=== PATIENT | male | born 1955 | race African-American/Black ===

== ENCOUNTER 2017-02-06 07:55 | Emergency (ER) | payer OTHER ==
[~2017-02-06] VITALS: Ht 180.3 cm; Wt 70.0 kg
[2017-02-06 07:56] VITALS: BP 163/81; PULSE 67; RESP 14; TEMP 98.8; O2SAT 97
[2017-02-06] MEDS ORDERED: PENI500T PO (09:33)
[2017-02-06] MEDS ORDERED: MAGICADU2 SWISH-SPIT (09:33)
--- NOTE | 2017-02-06 09:33 | PD ---
HPI Chief Complaint: Oral / Dental Pain or Problem Time Seen by Provider: 09:27 Travel History International Travel<30 days: No Contact w/Intl Traveler<30days: No Traveled to known affect area: No History of Present Illness HPI patient 61-year-old male who admits to cocaine use, smoker presents emergency department for evaluation of a right mandibular jaw swelling and pain to the past few days which is gradually worsening. Denies having followed up with a dentist as he does not have one. Denies any fever denies difficulty swallowing denies any chest pain. Symptoms are moderate, gradually worsening, right jaw, associated signs symptoms as above. PFSH Past Medical History Medical History: Denies Significant Hx Diminished Hearing: No ?: Not Past Surgical History Other Surgery: Yes (HEMMROID SX) Social History Alcohol Use: Yes (DAILY) Tobacco Use: Yes (1 PPD) Substance Use: Yes (MARIJUANA, COCAINE-02/05/17) Allergies-Medications (Allergen,Severity, Reaction): Coded Allergies: No Known Allergies (Unverified , 02/06/17) Reported Meds & Prescriptions Reported Meds & Active Scripts Active Penicillin V Potassium 500 Mg Tab 500 Mg PO Q6H 10 Days Magic Mouthwash Adult Liq (Multi-Ingredient Mouthwash/Gargle) 120 Ml Susp 5 Ml SWISH-SPIT ACHS Each 5mL contains: Nystatin 200,000units, Diphenhydramine 4.25mg, Viscous Lidocaine 10mg, Estrada syrup 0.8 mL Review of Systems Except as stated in HPI: all other systems reviewed are Neg Physical Exam Narrative GENERAL: Well-nourished, well-developed patient. SKIN: Focused skin assessment warm/dry. HEAD: Normocephalic. EYES: No scleral icterus. No injection or drainage. ENT: TMs clear bilaterally, no lymphadenopathy in the neck or face, neck is supple. There is a dental abscess of his coming to a head at what appears to be the right bicuspid on the mandibular side. The patient is nearly edentulous. After drainage this swelling is gone down significantly. NECK: Supple, trachea midline. No JVD or lymphadenopathy. CARDIOVASCULAR: Regular rate and rhythm without murmurs, gallops, or rubs. RESPIRATORY: Breath sounds equal bilaterally. No accessory muscle use. GASTROINTESTINAL: Abdomen soft, non-tender, nondistended. MUSCULOSKELETAL: No cyanosis, or edema. BACK: Nontender without obvious deformity. No CVA tenderness. Data Data Last Documented VS Vital Signs Date Time Temp Pulse Resp B/P (MAP) Pulse Ox O2 Delivery O2 Flow Rate FiO2 02/06/17 10:08 02/06/17 07:56 98.8 67 14 97 Orders Orders Ed Discharge Order (02/06/17 12:20) MDM Medical Decision Making Medical Screen Exam Complete: Yes Emergency Medical Condition: Yes Differential Diagnosis dental abscess, Paulino angina is been excluded clinically, poor dental hygiene, smoking status. Narrative Course Patient roomed emerged department, had an uncomplicated needle drainage of his abscess, discussed smoking cessation need for antibiotic therapy and follow-up with a dentist. He stable for discharge. Procedures Procedure Narrative INCISION AND DRAINAGE: After informed consent with risks benefits competitions and alternatives discussed with the patient and agreed for needle drainage, was offered a dental block and declined. An 18-gauge needle attached with 3 cc syringe was inserted into the abscess intraorally, he drained approximately 3 cc of purulent material. Patient felt much better after the drainage. Tolerated it well. No immediate complications are seen Diagnosis Primary Impression: Dental abscess Med/Other Pt SpecificInfo: Prescription(s) given Scripts Penicillin V Potassium (Penicillin V Potassium) 500 Mg Tab 500 MG PO Q6H for Infection for 10 Days, #40 TAB 0 Refills Prov: Chase Gresham MD 02/06/17 Sghcaihp-Oqvuhxhfnynjpva-Fhibwpdgb Liq (Magic Mouthwash Adult Liq) 120 Ml Susp 5 ML SWISH-SPIT ACHS for Mouth sores, #120 ML 0 Refills Each 5mL contains: Nystatin 200,000units, Diphenhydramine 4.25mg, Viscous Lidocaine 10mg, Estrada syrup 0.8 mL Prov: Chase Gresham MD 02/06/17 Disposition: 01 DISCHARGE HOME Condition: Stable Chase Gresham MD Feb 06, 2017 09:33
== END 2017-02-06 10:10 | disposition home or self-care (01) ==
LOC: NEPD 07:55
DX: K04.7 Periapical abscess without sinus (principal); F17.210 Nicotine dependence, cigarettes, uncomplicated
CPT/HCPCS: 10060; 41800

== ENCOUNTER 2017-09-16 15:33 | Emergency (ER) | payer SELFPAY ==
[~2017-09-16] VITALS: Ht 180.3 cm; Wt 65.0 kg
[~2017-09-16 15:33] MED LIST: MAGICADU2 SWISH-SPIT; PENI500T PO
[2017-09-16] MEDS ORDERED: IOHEXOL 350 MG/ML 10 ML VIAL (for RAD DIAG) IVCONTRAST ONE (15:34)
[2017-09-16 16:23] VITALS: BP 183/92; PULSE 63; RESP 20; TEMP 97.6; O2SAT 97
[2017-09-16] MEDS ORDERED: SODIUM CHLOR 0.9% 1000 ML INJ 1,000 ML IV SCH (17:04)
--- NOTE | 2017-09-16 17:10 | PD ---
HPI Chief Complaint: Abdominal Pain Time Seen by Provider: 16:55 Travel History International Travel<30 days: No Contact w/Intl Traveler<30days: No Traveled to known affect area: No History of Present Illness HPI 62-year-old male presents to the emergency department for evaluation of abdominal pain that started today. Patient also states he feels constipated. He states that his last bowel movement was yesterday. Patient currently rates his abdominal pain 5-6/10, intermittent achy right side without radiation. Patient reports no fevers or chills. No chest pain or shortness of breath. He denies any previous abdominal surgeries. He states he has no chronic medical problems and takes no prescribed medications. He states he drinks 4 beers every other day and uses crack cocaine. He denies any IV drug use. Moderate severity. PFSH Past Medical History Diminished Hearing: No Past Surgical History Other Surgery: Yes (HEMMROID SX) Social History Alcohol Use: Yes (DAILY) Tobacco Use: Yes (1 PPD) Substance Use: Yes (MARIJUANA, COCAINE-02/05/17) Allergies-Medications (Allergen,Severity, Reaction): Coded Allergies: No Known Allergies (Unverified Allergy, Unknown, 09/16/17) Reported Meds & Prescriptions Reported Meds & Active Scripts Active No Active Prescriptions or Reported Medications Review of Systems Except as stated in HPI: all other systems reviewed are Neg Physical Exam Narrative GENERAL: Well-nourished, well-developed male patient, afebrile. SKIN: Focused skin assessment warm/dry. HEAD: Normocephalic. Atraumatic. EYES: No scleral icterus. No injection or drainage. NECK: Supple, trachea midline. No JVD or lymphadenopathy. CARDIOVASCULAR: Regular rate and rhythm without murmurs, gallops, or rubs. RESPIRATORY: Breath sounds equal bilaterally. No accessory muscle use. Lung sounds are clear to auscultation. GASTROINTESTINAL: Abdomen soft and nondistended. Patient has some tenderness to the right mid abdomen. No tenderness over McBurney's point. MUSCULOSKELETAL: No cyanosis, or edema. BACK: Nontender without obvious deformity. No CVA tenderness. Data Data Last Documented VS Vital Signs Date Time Temp Pulse Resp B/P (MAP) Pulse Ox O2 Delivery O2 Flow Rate FiO2 09/16/17 17:30 67 18 144/86 (105) 97 Room Air 09/16/17 16:23 97.6 Orders Orders Complete Blood Count With Diff (09/16/17 17:04) Comprehensive Metabolic Panel (09/16/17 17:04) Lipase (09/16/17 17:04) Prothrombin Time / Inr (Pt) (09/16/17 17:04) Act Partial Throm Time (Ptt) (09/16/17 17:04) Urinalysis - C+S If Indicated (09/16/17 17:04) Ct Abd/Pel W Iv Contrast(Rout) (09/16/17 17:04) Iv Access Insert/Monitor (09/16/17 17:04) Ecg Monitoring (09/16/17 17:04) Oximetry (09/16/17 17:04) Sodium Chlor 0.9% 1000 Ml Inj (Ns 1000 M (09/16/17 17:04) Sodium Chloride 0.9% Flush (Ns Flush) (09/16/17 17:15) Iohexol 350 Inj (Omnipaque 350 Inj) (09/16/17 15:34) Labs Laboratory Tests Test 09/16/17 17:35 09/16/17 19:05 White Blood Count 11.7 TH/MM3 Red Blood Count 4.78 MIL/MM3 Hemoglobin 14.2 GM/DL Hematocrit 43.6 % Mean Corpuscular Volume 91.1 FL Mean Corpuscular Hemoglobin 29.8 PG Mean Corpuscular Hemoglobin Concent 32.7 % Red Cell Distribution Width 14.2 % Platelet Count 179 TH/MM3 Mean Platelet Volume 8.9 FL Neutrophils (%) (Auto) 72.1 % Lymphocytes (%) (Auto) 19.9 % Monocytes (%) (Auto) 6.6 % Eosinophils (%) (Auto) 1.2 % Basophils (%) (Auto) 0.2 % Neutrophils # (Auto) 8.4 TH/MM3 Lymphocytes # (Auto) 2.3 TH/MM3 Monocytes # (Auto) 0.8 TH/MM3 Eosinophils # (Auto) 0.1 TH/MM3 Basophils # (Auto) 0.0 TH/MM3 CBC Comment DIFF FINAL Differential Comment Prothrombin Time 10.3 SEC Prothromb Time International Ratio 1.0 RATIO Activated Partial Thromboplast Time 27.5 SEC Blood Urea Nitrogen 16 MG/DL Creatinine 1.09 MG/DL Random Glucose 102 MG/DL Total Protein 7.4 GM/DL Albumin 3.7 GM/DL Calcium Level 9.2 MG/DL Alkaline Phosphatase 89 U/L Aspartate Amino Transf (AST/SGOT) 32 U/L Alanine Aminotransferase (ALT/SGPT) 38 U/L Total Bilirubin 0.4 MG/DL Sodium Level 143 MEQ/L Potassium Level 3.8 MEQ/L Chloride Level 108 MEQ/L Carbon Dioxide Level 28.3 MEQ/L Anion Gap 7 MEQ/L Estimat Glomerular Filtration Rate 83 ML/MIN Lipase 116 U/L Urine Color YELLOW Urine Turbidity CLEAR Urine pH 6.5 Urine Specific [place] 1.021 Urine Protein TRACE mg/dL Urine Glucose (UA) NEG mg/dL Urine Ketones NEG mg/dL Urine Occult Blood TRACE Urine Nitrite NEG Urine Bilirubin NEG Urine Urobilinogen 1.0 MG/DL Urine Leukocyte Esterase NEG Urine RBC 3 /hpf Urine WBC 1 /hpf Urine Squamous Epithelial Cells <1 /hpf Urine Mucus FEW /lpf Microscopic Urinalysis Comment CULT NOT INDICATED MDM Medical Decision Making Medical Screen Exam Complete: Yes Emergency Medical Condition: Yes Medical Record Reviewed: Yes Interpretation(s) Last Impressions Abdomen/Pelvis CT 09/16/17 4522 Signed Impressions: Service Date/Time: Saturday, September 16, 2017 19:05 - CONCLUSION: 1. Fluid-filled loops of nondilated large and small bowel. No significant constipation or acute inflammatory abnormality observed. Teodoro Maki Jr., MD Differential Diagnosis Pancreatitis versus cholecystitis versus diverticulitis versus constipation Narrative Course 62-year-old male presents to the emergency department for evaluation abdominal pain and constipation for 1 day. He does appear well on exam. IV access established. CBC, CMP, lipase, PTT, PT/INR, UA ordered and pending. CT abdomen /pelvis with IV contrast is ordered and pending. Patient is given normal saline 1 L IV bolus. CBC shows leukocytosis of 11.7. CMP shows no acute abnormality. Lipase is 116. Coags are unremarkable. UA is negative for acute infection. CT abdomen/ pelvis shows Fluid-filled loops of nondilated large and small bowel. No significant constipation or acute inflammatory abnormality observed. I discussed the results with my attending physician, Dr. Whatley, who examined patient. She recommends clear liquid diet for 6-12 hours and then advance as tolerated. He will be discharged home with a RX for Zofran. Patient verbalizes agreement and understanding. The patient was discharged in stable condition with instructions, including return instructions and follow up instructions. Diagnosis Primary Impression: Ileus Additional Impression: Abdominal pain Qualified Codes: R10.9 - Unspecified abdominal pain Referrals: Primary Care Physician call for appointment Patient Instructions: General Instructions, Ileus (ED) Additional Instructions: Clear liquid diet for 6-12 hours and then advance as tolerated. Take Zofran as directed as needed for nausea/vomiting. Follow up with your primary care physician. Return to the emergency department for any acute, worsening of symptoms. Med/Other Pt SpecificInfo: Prescription(s) given Scripts Ondansetron Odt (Ondansetron Odt) 4 Mg Tab 4 MG SL Q6HR Y for Nausea/Vomiting, #12 TAB 0 Refills Prov: Yolis Parker 09/16/17 Disposition: 01 DISCHARGE HOME Condition: Stable Yolis Parker September 16, 2017 17:10
[2017-09-16] MEDS ORDERED: SODIUM CHLORIDE 0.9% FLUSH 10 ML FLUSH IV FLUSH PRN (17:15)
[2017-09-16 17:29] VITALS: BP 144/86; PULSE 67; RESP 18; O2SAT 97
[2017-09-16 17:30] VITALS: BP 144/86; PULSE 67; RESP 18; O2SAT 97
[2017-09-16 17:54] LABS: AUTOMATED NEUTROPHIL # 8.4 TH/MM3 (1.8-7.7); BASOPHIL % 0.2 % (0.0-2.0); EOSINOPHIL # 0.1 TH/MM3 (0-0.4); EOSINOPHIL % 1.2 % (0.0-4.0); HEMATOCRIT 43.6 % (39.0-51.0); HEMOGLOBIN 14.2 GM/DL (13.0-17.0); LYMPH % 19.9 % (9.0-44.0); LYMPHOCYTE # 2.3 TH/MM3 (1.0-4.8); MEAN CELL VOLUME 91.1 FL (80.0-100.0); MEAN CORPUSCULAR HEMOGLOBIN 29.8 PG (27.0-34.0); MEAN CORPUSCULAR HGB CONC 32.7 % (32.0-36.0); MEAN PLATELET VOLUME 8.9 FL (7.0-11.0); MONO % 6.6 % (0.0-8.0); MONOCYTE # 0.8 TH/MM3 (0-0.9); NEUT % 72.1 % (16.0-70.0); PLATELET COUNT 179 TH/MM3 (150-450); RED BLOOD COUNT 4.78 MIL/MM3 (4.50-5.90); RED CELL DISTRIBUTION WIDTH 14.2 % (11.6-17.2); WHITE BLOOD COUNT 11.7 TH/MM3 (4.0-11.0)
[2017-09-16 18:09] LABS: PROTHROMBIN TIME - PATIENT 10.3 SEC (9.8-11.6)
[2017-09-16 18:12] LABS: ALBUMIN 3.7 GM/DL (3.4-5.0); AST (GOT) 32 U/L (15-37); BICARBONATE 28.3 MEQ/L (21.0-32.0); BLOOD UREA NITROGEN 16 MG/DL (7-18); CALCIUM 9.2 MG/DL (8.5-10.1); CHLORIDE 108 MEQ/L (98-107); CREATININE 1.09 MG/DL (0.60-1.30); GLOMERULAR FILTRATION RATE 83 ML/MIN (>89); GLUCOSE,RANDOM 102 MG/DL (74-106); SODIUM (NA) 143 MEQ/L (136-145)
[2017-09-16 18:22] LABS: ALKALINE PHOSPHATASE 89 U/L (45-117); ALT (GPT) 38 U/L (12-78); TOTAL BILIRUBIN ADULT 0.4 MG/DL (0.2-1.0); TOTAL PROTEIN 7.4 GM/DL (6.4-8.2)
[2017-09-16 19:18] LABS: BILIRUBIN, URINE NEG (NEG); BLOOD, URINE TRACE (NEG); GLUCOSE,URINE NEG (NEG); KETONE, URINE NEG (NEG); NITRITE,URINE NEG (NEG); PH, URINE 6.5 (5.0-8.5); URINE COLOR YELLOW (YELLW/STRAW); URINE LEUKOCYTE ESTERASE NEG (NEG)
[2017-09-16 19:19] LABS: MUCUS URINE FEW /lpf (OCC); SQUAMOUS EPITHELIAL CELL URINE <1 /hpf (0-5)
--- NOTE | 2017-09-16 19:33 | RADRPT ---
EXAM DATE/TIME: 09/16/2017 19:05 [facility] COMPARISON: No previous studies available for comparison. INDICATIONS : Abdomen pain and constipation. IV CONTRAST: 100 cc Omnipaque 350 (iohexol) IV ORAL CONTRAST: No oral contrast ingested. RADIATION DOSE: 6.64 CTDIvol (mGy) MEDICAL HISTORY : None SURGICAL HISTORY : None. ENCOUNTER: Initial ACUITY: 1 day PAIN SCALE: 5/10 LOCATION: Bilateral abdomen TECHNIQUE: Volumetric scanning of the abdomen and pelvis was performed. Using automated exposure control and ad justment of the mA and/or kV according to patient size, radiation dose was kept as low as reasonably achievable to obtain optimal diagnostic quality images. DICOM format image data is available electro nically for review and comparison. FINDINGS: LOWER LUNGS: The visualized lower lungs are clear. LIVER: Homogeneous density without lesion. There is no dilation of the biliary tree. No calcified gallston es. SPLEEN: Normal size without lesion. PANCREAS: Within normal limits. KIDNEYS: Normal in size and shape. There is no mass, stone or hydronephrosis. ADRENAL GLANDS: Within normal limits. VASCULAR: There is no aortic aneurysm. BOWEL/MESENTERY: Fluid filled loops of nondilated large and small bowel. Several air fluid levels observed. There is no free intraperitoneal air or fluid. ABDOMINAL WALL: Within normal limits. RETROPERITONEUM: There is no lymphadenopathy. BLADDER: No wall thickening or mass. REPRODUCTIVE: Within normal limits. INGUINAL: There is no lymphadenopathy or hernia. 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 A degenerative l umbar spine. CONCLUSION: 1. Fluid-filled loops of nondilated large and small bowel. No significant constipation or acute infla mmatory abnormality observed. Teodoro Maki Jr., MD on September 16, 2017 at 19:28 Board Certified Radiologist. This report was verified electronically.
--- NOTE | 2017-09-16 19:42 | PD ---
Physical Exam Date Seen by Provider: September 16, 2017 Time Seen by Provider: 19:41 Narrative GENERAL: Well-developed well-nourished male no acute distress no respiratory distress SKIN: Warm and dry. HEAD: Normocephalic. EYES: No scleral icterus. No injection or drainage. NECK: Supple, trachea midline. No JVD or lymphadenopathy. CARDIOVASCULAR: Regular rate and rhythm without murmurs, gallops, or rubs. RESPIRATORY: Breath sounds equal bilaterally. No accessory muscle use. GASTROINTESTINAL: Abdomen soft, non-tender, nondistended. Data Data Last Documented VS Vital Signs Date Time Temp Pulse Resp B/P (MAP) Pulse Ox O2 Delivery O2 Flow Rate FiO2 09/16/17 22:06 09/16/17 17:30 67 18 97 Room Air 09/16/17 16:23 97.6 Orders Orders Complete Blood Count With Diff (09/16/17 17:04) Comprehensive Metabolic Panel (09/16/17 17:04) Lipase (09/16/17 17:04) Prothrombin Time / Inr (Pt) (09/16/17 17:04) Act Partial Throm Time (Ptt) (09/16/17 17:04) Urinalysis - C+S If Indicated (09/16/17 17:04) Ct Abd/Pel W Iv Contrast(Rout) (09/16/17 17:04) Iv Access Insert/Monitor (09/16/17 17:04) Ecg Monitoring (09/16/17 17:04) Oximetry (09/16/17 17:04) Sodium Chlor 0.9% 1000 Ml Inj (Ns 1000 M (09/16/17 17:04) Sodium Chloride 0.9% Flush (Ns Flush) (09/16/17 17:15) Iohexol 350 Inj (Omnipaque 350 Inj) (09/16/17 15:34) Ed Discharge Order (09/16/17 19:46) Labs Laboratory Tests Test 09/16/17 17:35 09/16/17 19:05 White Blood Count 11.7 TH/MM3 Red Blood Count 4.78 MIL/MM3 Hemoglobin 14.2 GM/DL Hematocrit 43.6 % Mean Corpuscular Volume 91.1 FL Mean Corpuscular Hemoglobin 29.8 PG Mean Corpuscular Hemoglobin Concent 32.7 % Red Cell Distribution Width 14.2 % Platelet Count 179 TH/MM3 Mean Platelet Volume 8.9 FL Neutrophils (%) (Auto) 72.1 % Lymphocytes (%) (Auto) 19.9 % Monocytes (%) (Auto) 6.6 % Eosinophils (%) (Auto) 1.2 % Basophils (%) (Auto) 0.2 % Neutrophils # (Auto) 8.4 TH/MM3 Lymphocytes # (Auto) 2.3 TH/MM3 Monocytes # (Auto) 0.8 TH/MM3 Eosinophils # (Auto) 0.1 TH/MM3 Basophils # (Auto) 0.0 TH/MM3 CBC Comment DIFF FINAL Differential Comment Prothrombin Time 10.3 SEC Prothromb Time International Ratio 1.0 RATIO Activated Partial Thromboplast Time 27.5 SEC Blood Urea Nitrogen 16 MG/DL Creatinine 1.09 MG/DL Random Glucose 102 MG/DL Total Protein 7.4 GM/DL Albumin 3.7 GM/DL Calcium Level 9.2 MG/DL Alkaline Phosphatase 89 U/L Aspartate Amino Transf (AST/SGOT) 32 U/L Alanine Aminotransferase (ALT/SGPT) 38 U/L Total Bilirubin 0.4 MG/DL Sodium Level 143 MEQ/L Potassium Level 3.8 MEQ/L Chloride Level 108 MEQ/L Carbon Dioxide Level 28.3 MEQ/L Anion Gap 7 MEQ/L Estimat Glomerular Filtration Rate 83 ML/MIN Lipase 116 U/L Urine Color YELLOW Urine Turbidity CLEAR Urine pH 6.5 Urine Specific [place] 1.021 Urine Protein TRACE mg/dL Urine Glucose (UA) NEG mg/dL Urine Ketones NEG mg/dL Urine Occult Blood TRACE Urine Nitrite NEG Urine Bilirubin NEG Urine Urobilinogen 1.0 MG/DL Urine Leukocyte Esterase NEG Urine RBC 3 /hpf Urine WBC 1 /hpf Urine Squamous Epithelial Cells <1 /hpf Urine Mucus FEW /lpf Microscopic Urinalysis Comment CULT NOT INDICATED MDM Medical Record Reviewed: Yes Supervised Visit with COURTNEY: Yes Differential Diagnosis Abdominal pain, gastroenteritis, colitis, diverticulitis, ileus, partial small bowel obstruction, intestinal colic Narrative Course One day abdominal cramping with difficulty having bowel movement. Patient was nausea. No hematemesis no coffee-ground emesis. Patient reports no injury no fall. Patient denies fever chills. Patient applied Epson salts poultice to his abdominal wall and felt this provided some relief. Patient denies any chronic medical conditions. Patient denies chest pain or shortness of breath. On physical exam patient has soft nontender abdomen without guarding or rebound bowel sounds are auscultated remainder of exam is unremarkable. Specimens collected and sent for resulting as ordered by mid-level provider revealed no acute abnormality and are consistent with evaluation for nonspecific abdominal pain and CT abdomen pelvis reveals no acute obstruction or acute inflammatory process. Possible mild early ileus. No bowel obstruction no evidence for bowel ischemia and no findings for colitis or diverticulitis. Patient is otherwise stable for outpatient management and encouraged to follow clear liquid diet advance as tolerated and return the emergency department for any concerns. Diagnosis Primary Impression: Nonspecific abdominal pain Additional Impression: Ileus, unspecified Scripts Ondansetron Odt (Ondansetron Odt) 4 Mg Tab 4 MG SL Q6HR Y for Nausea/Vomiting, #12 TAB 0 Refills Prov: Yolis Parker 09/16/17 Leihg Whatley MD September 16, 2017 19:42
[2017-09-16] MEDS ORDERED: ONDA4TAB7 SL (19:44)
== END 2017-09-16 22:13 | disposition home or self-care (01) ==
LOC: NEPC 15:33
DX: K56.7 Ileus, unspecified (principal); F17.200 Nicotine dependence, unspecified, uncomplicated
CPT/HCPCS: 74177; 80053; 81001; 83690; 85025; 85610; 85730; 96360; 99285; J7030; Q9967